=== PATIENT | female | born 1985 | race Caucasian/White ===

== ENCOUNTER 2020-08-26 14:18 | Observation (INO) | payer OTHER, SELFPAY ==
--- NOTE | ~2020-08-26 | US_ITS ---
US OB BPP wo non-stress DATE: 08/26/2020 16:28 INDICATION: heart decelerations in office TECHNIQUE: Real-time imaging and Doppler analysis COMPARISON: None FINDINGS: Live single intrauterine gestation, fetus in longitudinal lie, vertex presentation. Posterofundal placenta. heart rate of 115 bpm. Amniotic fluid pocket up to 6.8 cm depth. BIOPHYSICAL PROFILE reported by dialysis chief equipment technician: breathin out of 2 movement: 2 out of 2 tone: 2 out of 2 Amniotic fluid pocket: 2 out of 2 Total score: 8 out of 8 IMPRESSION: Normal biophysical profile score of 8 out of 8 Reviewed, dictated and finalized at [facility]. Reviewed, dictated and finalized at location A.
--- NOTE | 2020-08-26 14:20 | OBADM ---
This patient, [place] Diallo, admitted to the OB room OB Post 112 for observation. Patient/family oriented to hospital policies and general routines including ID bracelet, bed and alarms, visiting hours, pain management, procedures, bathroom and other care routines, personal items, smoking policy, room service/diet, and visiting hours. Patient/Family are encouraged to report perceived risks to care and to ask questions if they do not understand what they are told or what they should do.
[2020-08-26 14:45] VITALS: BMI 45.5
[2020-08-26 14:46] VITALS: BP 127/80; PULSE 81
[2020-08-26 15:00] VITALS: BP 124/87; PULSE 79
[2020-08-26 15:16] VITALS: BP 122/75; PULSE 66
[2020-08-26 15:31] VITALS: BP 123/69; PULSE 71
--- NOTE | 2020-09-18 18:51 | PM.OBTRLD ---
OB - Triage/Final Diagnosis Visit Information Comments/Additional reasons for admission: I have assessed the risk for this patient, [place] Diallo, and determined that she would benefit from observation care. Final Diagnosis (1) Non-reassuring heart tones complicating , antepartum: Code(s): O36.8390 - Maternal care for abnormalities of the heart rate or rhythm, unspecified trimester, not applicable or unspecified Status: Acute
== END 2020-08-26 16:45 | disposition home or self-care (01) ==
PROVIDERS: Admitting Provider Obstetrics & Gynecology; Visit Provider Obstetrics & Gynecology
DX: O36.8331 Maternal care for abnormalities of the fetal heart rate or rhythm, third trimester, fetus 1 (principal); Z3A.37 37 weeks gestation of pregnancy
CPT/HCPCS: 76819; G0378; G0379

== ENCOUNTER 2020-08-30 14:05 | Outpatient (CLI) | payer OTHER, SELFPAY ==
[2020-08-30 14:52] VITALS: BP 123/79; PULSE 91
[2020-08-30 15:01] VITALS: BP 123/69; PULSE 87
[2020-08-30 15:05] VITALS: BP 123/79; PULSE 95
[2020-08-30 15:05] LABS: Creatinine Urine 37.7 mg/dL; Total Protein Urine Random 14 mg/dL; Ur Ttl Prot Creatinine Ratio 0.37 mg/mg (0-0.20)
[2020-08-30 15:48] VITALS: BP 130/76; PULSE 84
[2020-08-30 15:49] LABS: Basophils Percent Auto 0.2 % (0.2-1.2); Eosinophils Absolute Auto 0.1 K/mm3 (0-0.3); Eosinophils Percent Auto 0.5 % (0-4.4); Hemoglobin 12.7 g/dL (12.0-15.0); Immature Granulocyte Absolute 0.05 K/mm3 (0.00-0.031); Immature Granulocyte Percent A 0.5 % (0-0.5); Lymphocytes Absolute Auto 1.52 K/mm3 (0.9-3.2); Lymphocytes Percent Auto 16.3 % (18.3-44.2); Mean Corpuscular HGB Conc 33.4 g/dl (32-36); Mean Corpuscular Volume 86.8 fl (80-100); Monocytes Absolute Auto 0.5 K/mm3 (0.1-0.6); Monocytes Percent Auto 5.5 % (2.6-8.5); Neutrophils Absolute Auto 7.2 K/mm3 (1.3-6.7); Platelet Count Result 226 k/mm3 (150-375); Red Blood Count 4.38 M/mm3 (4.2-5.4); Red Cell Distribution Width 14.4 % (11.5-14.5); White Blood Count 9.4 K/mm3 (4.5-10.0)
[2020-08-30 16:01] VITALS: BP 98/70; PULSE 82
[2020-08-30 16:03] LABS: Alanine Aminotransferase 49 U/L (4-35); Albumin Level 3.5 g/dL (3.5-5.1); Alkaline Phosphatase 235 U/L (38-126); Anion Gap 7 mmol/L (8-16); Aspartate Amino Transferase 43 U/L (14-36); Bilirubin,Total 0.4 mg/dL (0.2-1.3); Blood Urea Nitrogen 5 mg/dL (7-17); Calcium 9.1 mg/dL (8.4-10.2); Carbon Dioxide 24 mmol/L (22-30); Chloride 105 mmol/L (98-107); Estimated Glomerular Filt Rate > 60; Glucose 91 mg/dL (65-105); Potassium 3.9 mmol/L (3.4-5.0); Sodium 136 mmol/L (137-145); Uric Acid 5.1 mg/dL (2.5-7.5)
[2020-08-30 16:16] VITALS: BP 114/70; PULSE 75
[2020-08-31 10:43] LABS: Add Urine Microscopic? YES; Appearance Urine Clear (Clear); Bilirubin Urine Negative (Negative); Blood Urine Negative (Negative); Color Urine Yellow (Yellow); Glucose Urine UA Negative (Negative); Ketones Urine Negative (Negative); Leukocyte Esterase Ur Trace LEU/UL (NEGATIVE); Mucus Urine Rare /lpf; Nitrate Urine Negative (Negative); Protein Urine Negative (Negative); Specific Grav Ur 1.005 (1.001-1.035); Squamous Epithelial Cell Urine Rare /hpf (Few); Urobilinogen Urine Negative mg/dL (<2.0); WBC Urine 0-3 /hpf (0-3)
== END 2020-08-30 16:32 | disposition home or self-care (01) ==
LOC: ANHOBOP 14:10 → ANHOBPP 14:12
PROVIDERS: Visit Provider Obstetrics & Gynecology
DX: O13.9 Gestational [pregnancy-induced] hypertension without significant proteinuria, unspecified trimester (principal); Z3A.00 Weeks of gestation of pregnancy not specified
CPT/HCPCS: 36415; 59025; 80053; 81001; 82570; 84156; 84550; 85025; 87086; 99199

== ENCOUNTER 2020-09-02 14:32 | Outpatient (CLI) | payer OTHER, SELFPAY ==
[2020-09-02 15:50] VITALS: BP 133/76; PULSE 98
== END 2020-09-02 14:33 | disposition home or self-care (01) ==
LOC: ANHOBOP 15:34
PROVIDERS: Visit Provider Obstetrics & Gynecology
DX: O41.8X90 Other specified disorders of amniotic fluid and membranes, unspecified trimester, not applicable or unspecified (principal); Z3A.00 Weeks of gestation of pregnancy not specified
CPT/HCPCS: 59025; 84112

== ENCOUNTER 2020-09-03 05:28 | Inpatient (IN) | payer OTHER, SELFPAY ==
[2020-09-03] VITALS (136 sets, daily range): BP systolic 90–153; BP diastolic 64–107; PULSE 72–108; RESP 16; TEMP 36.1–37.1; O2SAT 80–100; BMI 39.3
--- NOTE | 2020-09-03 05:28 | LDADM ---
This patient, [place] Diallo, was admitted to Labor/Delivery/Recovery 104 on 09/03/20 at 05:28. Plans for labor, pain management and were discussed with patient. Patient/family oriented to hospital policies and general routines including ID bracelet, bed and alarms, visiting hours, pain management, procedures, bathroom and other care routines, personal items, smoking policy, room service/diet and guest tray routines, security routines, and visiting hours. Patient/Family are encouraged to report perceived risks to care and to ask questions if they do not understand what they are told or what they should do. See OBIX for further documentation.
[2020-09-03 06:47] LABS: Basophils Percent Auto 0.3 % (0.2-1.2); Eosinophils Absolute Auto 0.1 K/mm3 (0-0.3); Eosinophils Percent Auto 0.8 % (0-4.4); Hematocrit 38.9 % (37.0-47.0); Immature Granulocyte Absolute 0.04 K/mm3 (0.00-0.031); Immature Granulocyte Percent A 0.5 % (0-0.5); Immature Platelet Fraction Pct 3.8 % (0.9-11.2); Lymphocytes Absolute Auto 1.49 K/mm3 (0.9-3.2); Lymphocytes Percent Auto 16.9 % (18.3-44.2); Mean Corpuscular HGB Conc 33.4 g/dl (32-36); Mean Corpuscular Hemoglobin 28.4 pg (26-34); Mean Corpuscular Volume 85.1 fl (80-100); Mean Platelet Volume 10.3 fl (7.4-10.4); Monocytes Absolute Auto 0.4 K/mm3 (0.1-0.6); Neutrophils Absolute Auto 6.7 K/mm3 (1.3-6.7); Neutrophils Percent Auto 76.5 % (45.5-73.1); Platelet Count Result 241 k/mm3 (150-375); Red Blood Count 4.57 M/mm3 (4.2-5.4); Red Cell Distribution Width 14.5 % (11.5-14.5); White Blood Count 8.8 K/mm3 (4.5-10.0)
--- NOTE | 2020-09-03 07:02 | PHAR ---
CALLED MD TO CONFIRM 220 MG METHADONE DOSE. PATIENT WAS FAMILIAR WITH MD. PATIENT HAS BEEN ON LARGE DOSE OF METHADONE FOR YEARS. DR BRIDGES CONFIRMED THAT 220 MG WAS CORRECT.
[2020-09-03] MEDS: methADONE HCL (*CRX) 10 MG TABLET 220 MG PO (07:22)
[2020-09-03] MEDS: LACTATED RINGERS 1,000 ML 125 ML IV CONT ×2 (07:39→09:15)
[2020-09-03] MEDS: AMPICILLIN 2 GM/NS 100 ML 2 GM/100 ML BAG IVPB (07:44)
[2020-09-03] MEDS: OXYTOCIN 30 UNITS/NS 500 ML 30 UNITS/500 ML BAG IV CONT (08:03)
--- NOTE | 2020-09-03 08:36 | WPDANESEPPF ---
Anes - Initial Pre Proc Eval Date/Time: 09/03/20 08:36 Surgeon: Kimberley Darby MD Pre Op Diagnosis: IOL Patient Data Age: 34 Gender: F Height: 1.7 m Weight: 114 kg Last Vital Signs Pulse 76 09/03/20 08:31 BP 134/84 09/03/20 08:31 Allergies Allergy/AdvReac Type Severity Reaction Status Date / Time No Known Allergies Allergy Unverified 03/15/16 11:24 Home Medications Medication Instructions Recorded Confirmed Type methadone 220 mg PO DAILY 08/30/20 09/02/20 History prenat.vits,marcie,[id number] 1 tablet PO DAILY 08/30/20 09/02/20 History [ Vitamin] Laboratory Tests 09/03/20 09/03/20 09/03/20 06:36 06:36 06:36 WBC 8.8 K/mm3 K/mm3 (4.5-10.0) RBC 4.57 M/mm3 M/mm3 (4.2-5.4) Hgb 13.0 g/dL g/dL (12.0-15.0) Hct 38.9 % % (37.0-47.0) MCV 85.1 fl fl (80-100) MCH 28.4 pg pg (26-34) MCHC 33.4 g/dl g/dl (32-36) RDW 14.5 % % (11.5-14.5) Plt Count 241 k/mm3 k/mm3 (150-375) MPV 10.3 fl fl (7.4-10.4) Immature Gran % (Auto) 0.5 % % (0-0.5) Neut % (Auto) 76.5 % H % (45.5-73.1) Lymph % (Auto) 16.9 % L % (18.3-44.2) [place] % (Auto) 5.0 % % (2.6-8.5) Eos % (Auto) 0.8 % % (0-4.4) Baso % (Auto) 0.3 % % (0.2-1.2) Lymph # (Auto) 1.49 K/mm3 K/mm3 (0.9-3.2) [place] # (Auto) 0.4 K/mm3 K/mm3 (0.1-0.6) Eos # (Auto) 0.1 K/mm3 K/mm3 (0-0.3) Baso # (Auto) 0.0 K/mm3 K/mm3 (0.0-0.1) Abs Immat Gran (auto) 0.04 K/mm3 H K/mm3 (0.00-0.031) Absolute Neuts (auto) 6.7 K/mm3 K/mm3 (1.3-6.7) Absolute Nucleated RBC 0.0 K/mm3 K/mm3 (0.0-0.012) Nucleated RBC % 0.0 % % (0.0-0.2) % Immature Plt Fraction 3.8 % % (0.9-11.2) RPR Pending Blood Type O Positive Antibody Screen Negative Patient hx anesthesia problems: none Family hx anesthesia problems: none PMFSH Past Medical History Medical History Drug abuse, IV Social History Social History Smoking packs per day: 1 Smoking cigarettes per day: 20.0 Years smoked: 10 Smoking pack-years: 10.00 Smoking status: Former smoker Gender identity (if verbalized by the patient): Female Spiritual care concerns: No Anes - Eval Final PreProcedure Day of Procedure 09/03/20 08:36 Patient weight: obese Heart: regular rate and rhythm Lungs: clear to auscultation and normal air movement Airway: Mallampati scale class II Neurological: alert and oriented Last oral intake: >/= 8 hours ASA classification: III Emergent: no Anesthetic plan: proceed Anesthesia type and monitoring: regional epidural Informed Consent: The patient's anesthetic plan and its attendant risks and benefits were discussed with the patient/family/POA. Questions were solicited and answers provided to the satisfaction of the patient/family/POA.
[2020-09-03 09:54] LABS: Amphetamine Screen Urine Negative (Negative); Barbiturate Screen Urine Negative (Negative); Benzodiazepines Screen Urine Negative (Negative); Cannabinoid Screen Urine Negative (Negative); Cocaine Screen Urine Negative (Negative); Methadone Screen Urine Positive (Negative); Opiate Screen Urine Negative (Negative); Phencyclidine Screen Urine Negative (Negative)
--- NOTE | 2020-09-03 11:16 | WPDOBADMIT ---
Obstetrics - Admit Note Admission Note: record reviewed. No pertinent additions to the history and/or any subsequent changes in the physical findings that are not consistent with the expected course of the were found. Additions to the history and/or subsequent changes in the physical findings follow. 34yo at 39 weeks with complicated by methadone use, obesity, and PIH. IOL with DIVP and AROM. FHT category 1. UDS
--- NOTE | 2020-09-03 11:38 | PM.OBPNLAB ---
Pain Control Date/time seen: 09/03/20 11:38 Pain control: epidural Pelvic Exam Dilation (cm): 5 Effacement (%): 60 station: -3 Amniotic membrane status: Ruptured (clear) Comments: IUPC placed Contractions Monitor mode: Internal Status status: Category l Assessment and Plan Assessment: induction ongoing Plan: continuous present management
[2020-09-03] MEDS: AMPICILLIN 1 GM/NS 50 ML 1 GM/50 ML BAG IVPB (12:47)
--- NOTE | 2020-09-03 15:44 | P.PCNOB_ITS ---
OB - Delivery Note Procedure Delivery date: 09/03/20 Procedure: events: Induced HTN and Labor Induction Intrapartal events: None Induction method: AROM and per pitocin protocol Delivery augmentation: rupture of membranes Delivery monitor: external FHT and internal uterine Route of delivery: Episiotomy description: None Laceration Description: Periurethral Delivery repair: vicryl Quantitative Blood Loss (ml): 650 Anesthesia type: Epidural Disposition: floor Complications: Right periurethral laceration with brisk bleeding leading to much of the blood loss. Repaired and very hemostatic. Narrative: With adequate expulsive efforts by the mother, the baby's head was delivered OA. The baby's anterior shoulder was delivered under the pubic symphysis without difficulty. The posterior shoulder and the rest of the baby delivered without difficulty. The infant was placed on the mothers chest and suctioned and stimulated. The cord was clamped and cut after 30 seconds. Mother and baby both stable. [place] Baby Date of : 09/03/20 Time of : 15:26 Weeks of gestation at delivery: 39 Infant gender: Female Weight (pounds): 8 Weight (ounces): 3 presentation: vertex Placenta delivery description: Spontaneous cord vessel description: 3 Vessels and Delayed Cord Clamping score one minute: 8 score five minutes: 9
[2020-09-03] MEDS: OXYTOCIN 30 UNITS/NS 500 ML 30 UNITS/500 ML BAG 125 UNITS IV CONT (16:00)
--- NOTE | 2020-09-03 19:20 | OBPPTRN ---
Patient transferred to post room #279 via wheelchair. Support person present. Oriented to unit, room, information board, rooming in, admission packet and security measures. Patient verbalizes understanding.
[2020-09-04 00:35] VITALS: BP 117/70; PULSE 82; RESP 16; TEMP 36.8; O2SAT 98
[2020-09-04 03:40] VITALS: BP 121/80; PULSE 70; RESP 16; TEMP 36.8; O2SAT 100
[2020-09-04 08:15] VITALS: BP 128/75; PULSE 81; RESP 16; TEMP 36.3; O2SAT 99
[2020-09-04] MEDS: MULTIVIT/MIN/PREN/FOL AC/IRON TABLET 1 TAB PO (08:39)
[2020-09-04] MEDS: methADONE HCL (*CRX) 10 MG TABLET 220 MG PO (08:39)
--- NOTE | 2020-09-04 09:18 | WPDANLDPN2 ---
Anes-Prog Note L&D Date/Time: 09/04/20 09:18 Comfortable throughout: labor and delivery Neuraxial method: epidural Neuro status: Neuro function grossly intact. Cardiovascular status: normal Respiratory status: normal Airway patency: baseline Mental status: baseline Post-Op hydration status: normal Vital Signs: Last Vital Signs Temp 36.8 C 09/04/20 03:40 Pulse 70 09/04/20 03:40 Resp 16 09/04/20 03:40 BP 121/80 09/04/20 03:40 Pulse Ox 100 09/04/20 03:40 Pain score (VAS): 0/10 I/O: Intake & Output 09/03/20 09/04/20 09/04/20 23:59 07:59 15:59 Intake Total 2000 200 Output Total 1600 900 Balance 400 -700 Post-procedural complaints: none Patient feedback: Patient satisfied with anesthetic care.
--- NOTE | 2020-09-04 11:06 | P.PNOB_ITS ---
OB - PN: Subj Subjective Date/time seen: 09/04/20 11:06 Interval history: Doing well, baby doing well but per Peds will have to stay several days for withdrawal monitoring. Patient comments: no complaints and pain well controlled baby status: doing well and nursing well feeding status: exclusively breast feeding OB - PN: Obj Data Labs CBC & Chem 7: 09/03/20 06:36 OB - PN A/P Plan day: 1 Plan: routine care Comments: Declined H/H today- very tough stick. Started at 13, no symptoms. COntinue methadone. DC home tomorrow. Time Spent With Patient Time: Total time spent is greater than 50% in coordination of care (as docu mented) at patient's floor/unit and/or counseling patient: Time with patient: less than 15 minutes Exam Narrative: Exam Narrative: NAD abdomen soft, nontender, fundus firm below the umbilicus Extremities nontender, 1+ edema
[2020-09-04 11:45] VITALS: BP 129/87; PULSE 59; RESP 18; TEMP 36.4; O2SAT 99
--- NOTE | 2020-09-04 14:52 | PCCCNOTE ---
Addendum entered by MIRNA Herrera 09/05/20 09:06: Pt. situation does not qualify for investigation. Pt. situation does qualify for child welfare referral to offer services/provide support. Intake ID#[id number]. No further care coordination needs indicated. Original Note: Received referral for positive methadone. Met with pt. and father of baby present in the room. Pt. indicates being prescribed methadone through Dr. Gabriel Win at [facility] addiction [facility]. She states beginning methadone program 4 years during her first and states last using heroin 4 years ago. She declines any other substances. She states being present at Clinic daily for methadone in this current time due to COVID changes. She had baby at this hospital 4 years ago and was reported to DCFS at that time for Opiates and PCP in the meconium. The mother indicates that this case is no longer active and she states having no other DCFS involvement. Pt. states that she lives with father of baby and their 4 year old. She states having all needed items to care for at discharge home. She states they have local support from family and friends and family is watching their 4 year old during current hospitalization. Offered pt. with additional resources and she accepted same. Encouraged she contact any/all of interest. Nursing staff has no further concerns at this current hospitalization and toxicology has not been run on as no further concerns indicated. Reported pt. situation to DCFS and awaiting determination of any further needs.
[2020-09-04 16:00] VITALS: BP 123/85; PULSE 60; RESP 18; TEMP 36.2; O2SAT 99
[2020-09-04 19:45] VITALS: BP 123/75; PULSE 62; RESP 16; TEMP 36.8; O2SAT 100
[2020-09-05] VITALS: BP 120/80; PULSE 61; RESP 16; TEMP 36.9; O2SAT 100
[2020-09-05 03:27] VITALS: BP 111/73; PULSE 57; RESP 16; TEMP 36.6; O2SAT 100
[2020-09-05 07:30] VITALS: BP 108/74; PULSE 62; RESP 18; TEMP 36.6; O2SAT 100
--- NOTE | 2020-09-05 07:45 | PC.NURSE ---
PT introductions made and plan of care discussed per post , pain management, breast feeding, daily care activities and pending discharge to home. PT receives instructions and education per one to one discussion, demonstration, mom baby care guide. PT sole recipient of such instructions and no barriers to learning identified. PT verbalized understanding of such instructions.
--- NOTE | 2020-09-05 07:58 | PM.OBPNVD ---
OB - PN: Subj Subjective Date/time seen: 09/05/20 07:58 Patient comments: no complaints baby status: doing well OB - PN: Obj Data Labs CBC & Chem 7: 09/03/20 06:36 OB - PN A/P Plan day: 2 Plan: routine care and discharge home (F/U in 4 weeks) Time Spent With Patient Time: Total time spent is greater than 50% in coordination of care (as documented) at patient's floor/unit and/or counseling patient: Time with patient: less than 15 minutes Review of Systems Review of Systems: All systems reviewed & are unremarkable except as noted in HPI and below Exam Narrative: Exam Narrative: Fundus firm and vaginal flow controlled. No lower ext redness, warmth, or edema. Negative homans. Const: General: comfortable Chest: Breast/axilla inspection: normal inspection of the breasts Resp: Effort & Inspection: normal respiratory effort Cardio: Rate: regular rate GI: GI Palp: Yes Soft to palpation Psych: Appearance: grossly normal Affect: normal affect Attitude: cooperative Thought content: Yes Normal thought content present Judgement: Good judgement present (Psych)
[2020-09-05 09:00] VITALS: PULSE 62; RESP 18; O2SAT 100
[2020-09-05] MEDS: DOCUSATE SODIUM 100 MG CAPSULE PO ×2 (09:31→16:49)
[2020-09-05] MEDS: MULTIVIT/MIN/PREN/FOL AC/IRON TABLET 1 TAB PO (09:31)
[2020-09-05] MEDS: methADONE HCL (*CRX) 10 MG TABLET 220 MG PO (09:32)
--- NOTE | 2020-09-05 10:57 | PC.NURSE ---
Consult with pt., mother reports she has attempted to breast using nipple shield. Mother states she is very sore and bruised, she has been pumping and bottle feeding during the night. Reviewed nipple care of lanolin before pumping, warm moist compresses several times per day. Discussed working with self expression to obtain more colostrum for infant. Demonstrated self expression techniques, advise mother to pump for 15 minutes using hospital grade pump this expression for approx. 1 minute each breast. Reviewed breast pump care and usage, pumping schedule, nipple care, and collection and storage of breast milk. Encouraged [id number], breast massage and manual expression to stimulate supply. Assessed patient for correct flange size, placement and draw. Patient verbalizes and demonstrates understanding of instructions.
[2020-09-05] MEDS: TETANUS,DIPHTHERIA,AC PERTUSSIS ADULT (0.5 ML) BOOSTRIX IM (12:13)
--- NOTE | 2020-09-05 17:45 | PC.NURSE ---
PT discharged to home ambulatory to a no care bed status. PT will have follow up appt scheduled with discharge.
[2020-09-06 08:25] LABS: Rapid Plasma Reagin Non-Reactive (NonReactive)
== END 2020-09-05 17:45 | disposition home or self-care (01) | DRG 560 ==
LOC: ANHLDR 05:40 → ANHOB2 19:57
PROVIDERS: Admitting Provider Obstetrics & Gynecology; Visit Provider Obstetrics & Gynecology
DX: O13.4 Gestational [pregnancy-induced] hypertension without significant proteinuria, complicating childbirth (principal); O99.214 Obesity complicating childbirth; E66.9 Obesity, unspecified; O70.9 Perineal laceration during delivery, unspecified; Z3A.39 39 weeks gestation of pregnancy; Z37.0 Single live birth; O99.323 Drug use complicating pregnancy, third trimester; F11.90 Opioid use, unspecified, uncomplicated
CPT/HCPCS: 36415; 80307; 85025; 85055; 86592; 86850; 86900; 86901; 90715; A9270; J0290; J2590; J2795; J7120